=== PATIENT | female | born 1955 | race African-American/Black ===

== ENCOUNTER → 2020-05-20 | Outpatient (CLI) | payer OTHER ==
[~2020-05-20] MED LIST: ACYCLOVIR 400400 MG PO; ALDACTONE50 MG PO; ALEVE COLD & S1 EACH PO; BLACK ELDERBER1 EACH PO; IBUPROFEN 200200 M1 PO; VITAMIN C500 M2 PO; VITAMIN D325 MC3 PO
== END ==
LOC: LAB 10:46
PROVIDERS: ATTEND Specialist
DX: Z01.812 Encounter for preprocedural laboratory examination (principal); Z20.822 Contact with and (suspected) exposure to COVID-19

== ENCOUNTER → 2020-05-25 | Outpatient (CLI) | payer OTHER ==
[~2020-05-25] VITALS: Ht 160 cm; Wt 81.6 kg
--- NOTE | 2020-05-25 11:31 | P ---
[facility] [place] [address] PROCEDURE REPORT Name: LORENZA DAVIS Room #: [facility]#: [id number] Admission: 05/25/20 Attend Phys: Theodore Odom Discharge: Date of : 57 Report #: [id number] THIS REPORT FOR: cc: Brennen Winslow MD, Steven E. MD McElhinney, Christian C. MD ~ DATE OF SERVICE: 05/25/2020 PROCEDURE PERFORMED: Colonoscopy with biopsies. HISTORY OF PRESENT ILLNESS: The patient is a 65-year-old female who presents today for routine followup screening colonoscopy. She denies any symptoms. No family history of colon cancer. Last colonoscopy greater than 10 years ago. DESCRIPTION OF PROCEDURE: The risks and benefits of the procedure were explained to the patient, those risks including but not limited to bleeding, perforation and the risk of sedation. She understood these risks and gave informed consent. Sedation was given using propofol per anesthesia. Next, a digital rectal exam was initially performed, which was normal. Next, using a standard Olympus colonoscope, the scope was placed in the patient's anus and advanced under direct vision to the cecum. The overall prep was excellent. In the cecum, there were 3 small polyps ranging from 3-4 mm. These polyps were removed by cold forceps, otherwise normal. The ileocecal valve was normal. The ascending, transverse, descending and sigmoid colon were normal. The rectal mucosa was normal. On retroflexion, small nonbleeding internal hemorrhoids were noted. The scope was then withdrawn and the procedure terminated. The patient tolerated the procedure well. IMPRESSION: 1. Small colonic polyps. 2. Small internal hemorrhoids. 3. Otherwise, normal colonoscopy. RECOMMENDATIONS: 1. Await biopsy results. 2. If polyps are hyperplastic, repeat colonoscopy in 10 years; if adenomatous polyps, repeat in 5 years. Thank you for allowing me to participate in her care. <ELECTRONICALLY SIGNED> By: Theodore Mazariegos MD 05/25/20 1131 1011 [id number] Theodore Mazariegos MD /nt
--- NOTE | 2020-05-27 15:07 | PATH ---
[facility] [address] [place] [address] PATHOLOGY RPT PROCEDURE Name: SERA DAVIS Room #: REG [facility].#: [id number] Admission: 05/25/20 Date of : 57 Discharge: Report #: [id number] Path Case #: [id number] [facility] Accession Number: [id number] . 01 Material submitted: . colon - BX CECAL POLYP X3 . 01 Clinical history: . SCREENING COLON CANCER . 01 Diagnosis: Colonic mucosa "cecal polyp x 3": - Fragments of tubular adenoma. - There is no evidence of high-grade dysplasia or malignancy. (SHA:pit 05/27/2020) QTP 05/27/2020 1133 Local . 01 Electronically signed: . Hammad Ugalde MD, Pathologist NPI- [id number] . 01 Gross description: . The specimen is received in formalin, labeled "Sera Emmett, biopsy cecal polyp x3". Received are multiple segments of pale bella soft tissue ranging in size from 0.2 to 0.6 cm in maximum dimensions. The specimen is submitted entirely in cassette A1. (CAA; 05/26/2020) QAC/QAC 05/26/2020 1118 Local . 01 Pathologist provided ICD-10: D12.0 . 01 CPT . 665510 Specimen Comment: A courtesy copy of this report has been sent to [phone], [phone] Specimen Comment: [phone] Specimen Comment: Report sent to / DR ROBERTSON Performed at: [address], [place], [place] [id number] MD Hammad Ugalde MD Phone: [phone]
== END | disposition home or self-care (01) ==
LOC: GI 07:55
PROVIDERS: ATTEND Specialist
DX: Z12.11 Encounter for screening for malignant neoplasm of colon (principal); D12.0 Benign neoplasm of cecum; K64.8 Other hemorrhoids; K21.9 Gastro-esophageal reflux disease without esophagitis; Z98.890 Other specified postprocedural states; Z79.899 Other long term (current) drug therapy; Z85.3 Personal history of malignant neoplasm of breast; Z87.891 Personal history of nicotine dependence
CPT/HCPCS: 62110; 62900